=== PATIENT | female | born 1960 | race African-American/Black ===

== ENCOUNTER 2016-05-17 19:48 | Inpatient (IN) | payer OTHER ==
[2016-05-17 20:44] VITALS: BMI 28.3
--- NOTE | 2016-05-17 21:27 | HP ---
CIWA Score - CIWA Score Nausea/Vomitin-No Nausea/No Vomiting Muscle Tremors: 2 Anxiety: 3 Agitation: 3 Paroxysmal Sweats: 1-Minimal Palms Moist Orientation: 0-Oriented Tacttile Disturbances: 2-Mild Itch/Numbness/Burn (RIGHT HAND) Auditory Disturbances: 1-Very Mild Visual Disturbances: 1-Very Mild Sensitivity Headache: 2-Mild CIWA-Ar Total Score: 15 Admission ROS S - HPI Chief Complaint: WITHDRAWAL SYMPTOMS Allergies/Adverse Reactions: Allergies Allergy/AdvReac Type Severity Reaction Status Date / Time haloperidol [From Haldol] Allergy Severe Swelling Verified 05/17/16 20:49 haloperidol lactate Allergy Severe Swelling Verified 05/17/16 20:49 [From Haldol] brown sugar Allergy Severe Nausea Uncoded 05/17/16 20:49 History of Present Illness: 55 Y.O. WOMAN WITH AN EXTENSIVE HISTORY OF DRUG DEPENDENCE IS SEEKING DETOX. SHE COMPLETED DETOX AND REHAB IN THE PAST AND REPORTS HAVING A PERIOD OF 5 YEARS OF SOBRIETY. Exam Limitations: No Limitations - Ebola screening Have you traveled outside of the country in the last 21 days: No Have you had contact with anyone from an Ebola affected area: No Have you been sick,other than usual withdrawal symptoms: No Do you have a fever: No - Review of Systems Constitutional: Chills, Malaise, Changes in sleep EENT: reports: Blurred Vision, Tearing Respiratory: reports: Shortness of Breath Cardiac: reports: No Symptoms Reported GI: reports: Diarrhea : reports: No Symptoms Reported Musculoskeletal: reports: Back Pain, Joint Pain, Neck Pain Integumentary: reports: No Symptoms Reported Neuro: reports: Headache, Numbness (RIGHT HAND) Endocrine: reports: No Symptoms Reported Hematology: reports: No Symptoms Reported Psychiatric: reports: Mood/Affect Appropiate, Orientated x3, Depressed Other Systems: Reviewed and Negative Patient History - Patient Medical History Hx Anemia: No Hx Asthma: Yes Hx Chronic Obstructive Pulmonary Disease (COPD): No Hx Cancer: No Hx Cardiac Disorders: No Hx Congestive Heart Failure: No Hx Hypertension: No Hx Hypercholesterolemia: Yes Hx Pacemaker: No HX Cerebrovascular Accident: No Hx Seizures: No Hx Dementia: No Hx Diabetes: Yes (TYPE II ) Hx Gastrointestinal Disorders: No Hx Liver Disease: No Hx Genitourinary Disorders: No Hx Sexually Transmitted Disorders: No Hx Renal Disease (ESRD): No Hx Thyroid Disease: No Hx Human Immunodeficiency Virus (HIV): No Hx Hepatitis C: No Hx Depression: Yes Hx Suicide Attempt: Yes (ATTEMPTED OVERDOSE AT 18 Y.O. ) Hx Bipolar Disorder: No Hx Schizophrenia: No - Patient Surgical History Past Surgical History: Yes Hx Neurologic Surgery: No Hx Cataract Extraction: No Hx Cardiac Surgery: No Hx Lung Surgery: No Hx Breast Surgery: No Hx Breast Biopsy: No Hx Abdominal Surgery: No Hx Appendectomy: No Hx Cholecystectomy: No Hx Genitourinary Surgery: No Hx Section: Yes (1977) Hx Orthopedic Surgery: Yes (L KNEE REPLACEMENT; FX REPAIR ) Anesthesia Reaction: No - PPD History Previous Implant?: Yes Documented Results: Negative w/o proof PPD to be Administered?: Yes - Reproductive History Patient is a Female of Child Bearing Age (11 -55 yrs old): Yes Last Menstrual Period: 05/17/13 Patient : No - Smoking Cessation Smoking history: Current every day smoker Have you smoked in the past 12 months: Yes Aproximately how many cigarettes per day: 5 Hx Chewing Tobacco Use: No Initiated information on smoking cessation: Yes 'Breaking Loose' booklet given: 05/17/16 - Substance & Tx. History Hx Alcohol Use: Yes Hx Substance Use: Yes Substance Use Type: Alcohol, Cocaine, Heroin Hx Substance Use Treatment: Yes (DETOX AND REHAB ) - Substances Abused Alcohol Route: Oral Frequency: Daily Amount used: liquor- 4 pints, beer- 5 (40oz) Age of first use: 15 Date of Last Use: 05/17/16 Cocaine Route: Inhalation Frequency: Daily Amount used: 10 bags Age of first use: 32 Date of Last Use: 05/13/16 Family Disease History - Family Disease History Family Disease History: Diabetes: Mother, CA: Sister (CERVICAL CA ), Other: Brother (ALCOHOL AND DRUG DEPENDENCE ) Admission Physical Exam BHS - Vital Signs Vital Signs: Vital Signs - 24 hr 05/17/16 20:42 Temperature 98.2 F Pulse Rate 86 Respiratory 18 Rate Blood Pressure 151/95 - Physical General Appearance: Yes: No Apparent Distress HEENTM: Yes: Hearing grossly Normal, Normocephalic, Normal Voice Respiratory: Yes: Lungs Clear, Normal Breath Sounds, No Respiratory Distress, No Accessory Muscle Use Neck: Yes: No masses,lesions,Nodules, Trachea in good position Breast: Yes: Breast Exam Deferred Cardiology: Yes: Regular Rhythm, Regular Rate Abdominal: Yes: Normal Bowel Sounds, Non Tender, Flat, Soft Genitourinary: Yes: Within Normal Limits Back: Yes: Normal Inspection Musculoskeletal: Yes: full range of Motion, Gait Steady Extremities: Yes: Normal Inspection, Normal Range of Motion, Non-Tender Neurological: Yes: Fully Oriented, Normal Mood/Affect, Normal Response Integumentary: Yes: Normal Color, Dry, Warm Lymphatic: Yes: Within Normal Limits - Diagnostic (1) Alcohol dependence with uncomplicated withdrawal Current Visit: Yes Status: Chronic (2) Asthma Current Visit: Yes Status: Chronic (3) Diabetes mellitus, type II Current Visit: Yes Status: Chronic (4) Nicotine dependence Current Visit: Yes Status: Chronic (5) Cocaine dependence Current Visit: Yes Status: Chronic (6) Hyperlipidemia Current Visit: Yes Status: Chronic Cleared for Admission [facility] - Detox or Rehab [facility] Level of Care: Medically Managed Detox Regimen/Protocol: Librium [facility] Breath Alcohol Content Breath Alcohol Content: 0 Urine Pregancy Test - Result Urine Test Results: Negative- NO Line Present Urine Drug Screen - Results Drug Screen Negative: No Urine Drug Screen Results: KELLEY-Cocaine
[2016-05-17] MEDS ORDERED: chlordiazePOXIDE HCL 25 MG CAPSULE PO ONE (21:38)
[2016-05-17] MEDS ORDERED: diphenhydrAMINE HCL 50 MG CAPSULE PO PRN (21:38)
[2016-05-17] MEDS ORDERED: MAGNESIUM HYDROX 2400MG/30ML ORAL SUSPENSION 30 ML CUP PO PRN (21:38)
[2016-05-17] MEDS ORDERED: MAGNESIUM CITRATE 300 ML BOTTLE PO PRN (21:38)
[2016-05-17] MEDS ORDERED: LOPERAMIDE HCL 2 MG CAPSULE PO PRN (21:38)
[2016-05-17] MEDS ORDERED: MENTHOL/PHENOL 1 EACH UD MM PRN (21:38)
[2016-05-17] MEDS ORDERED: hydrOXYzine PAMOATE 50 MG CAPSULE (FP) PO PRN (21:38)
[2016-05-17] MEDS ORDERED: IBUPROFEN 400 MG TABLET (FP) PO PRN (21:38)
[2016-05-17] MEDS ORDERED: MAG HYDROX/AL HYDROX/SIMETH 30 ML UNIT-DOSE CUP PO PRN (21:38)
[2016-05-17] MEDS ORDERED: chlordiazePOXIDE HCL 25 MG CAPSULE PO PRN (21:38)
[2016-05-17] MEDS ORDERED: guaiFENesin/D-METHORPHAN HB 10 ML UNIT-DOSE CUPS PO PRN (21:38)
[2016-05-17] MEDS ORDERED: ACETAMINOPHEN 325 MG TABLET (FP) PO PRN (21:38)
[2016-05-17] MEDS ORDERED: P-EPHED 60MG/TRIPROLIDI 2.5MG TABLET PO PRN (21:38)
[2016-05-17] MEDS ORDERED: ALBUTEROL SO4 6.7 GM HFA INHALER IH PRN (21:46)
[2016-05-17 22:31] LABS: URINE APPEARANCE CLOUDY; URINE BILIRUBIN NEGATIVE (NEGATIVE); URINE BLOOD NEGATIVE (NEGATIVE); URINE COLOR YELLOW; URINE GLUCOSE (UA) NEGATIVE (NEGATIVE); URINE KETONE NEGATIVE (NEGATIVE); URINE LEUK ESTERASE NEGATIVE (NEGATIVE); URINE NITRITE NEGATIVE (NEGATIVE); URINE PROTEIN NEGATIVE (NEGATIVE); URINE UROBILINOGEN NEGATIVE E.U./dl (0.2-1.0)
[2016-05-17] MEDS ORDERED: ATORVASTATIN CA 40 MG TABLET (FP) ONE (22:51)
[2016-05-17] MEDS: ATORVASTATIN CA 80 MG TABLET (FP) PO SCH (22:54)
[2016-05-17] MEDS: THIAMINE HCL 100 MG TABLET (FP) PO SCH (22:54)
[2016-05-17] MEDS: chlordiazePOXIDE HCL 25 MG CAPSULE PO SCH (22:54)
[2016-05-18] MEDS: chlordiazePOXIDE HCL 25 MG CAPSULE PO SCH ×4 (05:34→22:35)
[2016-05-18] MEDS: metFORMIN HCL 500 MG TABLET (FP) PO SCH ×2 (08:39→17:25)
--- NOTE | 2016-05-18 10:37 | PN ---
S CIWA - CIWA Score Nausea/Vomitin Muscle Tremors: 3 Anxiety: 3 Agitation: 2 Paroxysmal Sweats: 1-Minimal Palms Moist Orientation: 0-Oriented Tacttile Disturbances: 1-Very Mild Itch/Numbness Auditory Disturbances: 1-Very Mild Visual Disturbances: 1-Very Mild Sensitivity Headache: 2-Mild CIWA-Ar Total Score: 17 BHS Progress Note (SOAP) Subjective: ALERT,IRRITABLE,ANXIOUS,INTERRUPTED SLEEP,TREMOR,PAIN IN THE BODY AND BACK Objective: 05/18/16 10:35 Vital Signs Temperature 97.7 F 05/18/16 10:31 Pulse Rate 84 05/18/16 10:31 Respiratory Rate 18 05/18/16 10:31 Blood Pressure 128/69 05/18/16 10:31 O2 Sat by Pulse Oximetry (%) EKG NSR Laboratory Last Values POC Glucometer 99 UNITS (()) 05/18/16 05:34 Urine Color Yellow 05/17/16 21:44 Urine Appearance Cloudy 05/17/16 21:44 Urine pH 5.0 (5.0-8.0) 05/17/16 21:44 Ur Specific [place] 1.017 (1.001-1.035) 05/17/16 21:44 Urine Protein Negative (NEGATIVE) 05/17/16 21:44 Urine Glucose (UA) Negative (NEGATIVE) 05/17/16 21:44 Urine Ketones Negative (NEGATIVE) 05/17/16 21:44 Urine Blood Negative (NEGATIVE) 05/17/16 21:44 Urine Nitrite Negative (NEGATIVE) 05/17/16 21:44 Urine Bilirubin Negative (NEGATIVE) 05/17/16 21:44 Urine Urobilinogen Negative E.U./dl (0.2-1.0) 05/17/16 21:44 Ur Leukocyte Esterase Negative (NEGATIVE) 05/17/16 21:44 LABS PENDING Assessment: 05/18/16 10:36 WITHDRAWAL SYMPTOM Plan: CONTINUE DETOX,BGM MONITORING
[2016-05-18 10:49] LABS: MCH 30.6 pg (25.7-33.7); MCHC 32.5 g/dl (32.0-36.0); MEAN CELL VOLUME 94.1 fl (80-96); MEAN PLT VOLUME 8.2 fl (7.5-11.1); PLATELET COUNT 245 K/MM3 (134-434); RDW 13.8 % (11.6-15.6); WHITE BLOOD COUNT 7.2 K/mm3 (4.0-10.0)
[2016-05-18] MEDS: PRENATAL VITAMINS W/ FOLIC ACID TABLET (FP) PO SCH (10:51)
[2016-05-18] MEDS: NICOTINE 21 MG/24 HOURS TOPICAL PATCH TD SCH (10:52)
[2016-05-18 12:24] LABS: ALBUMIN 3.6 g/dl (3.4-5.0); ANION GAP 9 (8-16); CALCIUM 8.9 mg/dL (8.5-10.1); CO2 29 mmol/L (21-32); GLUCOSE,RANDOM 177 mg/dL (74-106)
[2016-05-18 12:29] LABS: ALK PHOS 64 U/L (45-117); BILIRUBIN,TOTAL 0.7 mg/dL (0.2-1.0); CREATININE 0.9 mg/dL (0.55-1.02); SGOT/AST 9 U/L (15-37); SGPT/ALT 11 U/L (12-78); TOT PROT 6.7 g/dl (6.4-8.2)
--- NOTE | 2016-05-18 18:45 | CONSULT ---
[facility] Psychiatric Consult - Data Date of interview: 05/18/16 Admission source: [facility] Identifying data: Readmission to [facility] for this 55 y/o AA female seeking detox treatment for heroin,cocaine and alcohol dependence.Patient is single,a mother of two,homeless,unemployed and supported on [facility] benefits. Substance Abuse History: - Smoking Cessation. Smoking history: Current every day smoker. Have you smoked in the past 12 months: Yes. Aproximately how many cigarettes per day: 5. Hx Chewing Tobacco Use: No. Initiated information on smoking cessation: Yes. 'Breaking Loose' booklet given: 05/17/16. - Substance & Tx. History. Hx Alcohol Use: Yes. Hx Substance Use: Yes. Substance Use Type : Alcohol, Cocaine, Heroin. Hx Substance Use Treatment: Yes (DETOX AND REHAB ) . - Substances Abused. Alcohol. Route: Oral. Frequency: Daily. Amount used: liquor- 4 pints, beer- 5 (40oz). Age of first use: 15. Date of Last Use : 05/17/16. Cocaine. Route: Inhalation. Frequency: Daily. Amount used: 10 bags. Age of first use: 32. Date of Last Use: 05/13/16. Confirmed by patient. Medical History: Diabetes mellitus,rheumatoid arthritis,hypercholesterolemia and history of left knee replacement. Psychiatric History: History of 4-5 psychiatric hospitalizations limited to two institutions ([facility] and [facility]).Diagnosed with MDD.Patient reports trials with various drugs (paxil,duloxetine,gabapentin, zoloft,wellbutrin and others).Off psychotropic medications for about a year,as per own choice.No OPD care (used to be followed up at [facility]).Ms Beasley declines to consider a re-introduction to psychiatric care.Not interested in medications.Patient admits to a remote history of one suicide attempt (age 18) via overdose " with pills." Physical/Sexual Abuse/Trauma History: Patient denies. Additional Comment: Urine Drug Screen Results: KELLEY-Cocaine.Noted. Mental Status Exam - Mental Status Exam Alert and Oriented to: Time, Place, Person Cognitive Function: Good Patient Appearance: Well Groomed Mood: Withdrawn, Hopeful Affect: Normal Range Patient Behavior: Fatigued, Appropriate, Cooperative Speech Pattern: Clear Voice Loudness: Normal Thought Process: Goal Oriented Thought Disorder: Not Present Hallucinations: Denies Suicidal Ideation: Denies Homicidal Ideation: Denies Insight/Judgement: Poor Sleep: Well Appetite: Good Muscle strength/Tone: Normal Gait/Station: Normal Psychiatric Findings - Problem List ([place] 1, 2,3) (1) Alcohol dependence with uncomplicated withdrawal Current Visit: Yes Status: Acute (2) Cocaine dependence Current Visit: Yes Status: Acute (3) Nicotine dependence Current Visit: Yes Status: Acute (4) Substance induced mood disorder Current Visit: Yes Status: Acute (5) Asthma Current Visit: Yes Status: Chronic (6) Diabetes mellitus, type II Current Visit: Yes Status: Chronic (7) Hyperlipidemia Current Visit: Yes Status: Chronic - Initial Treatment Plan Initial Treatment Plan: Psychoeducation.Detoxification.Observation.
[2016-05-18] MEDS ORDERED: ATORVASTATIN CA 20 MG TABLET (FP) ONE (22:12)
[2016-05-18] MEDS: THIAMINE HCL 100 MG TABLET (FP) PO SCH (22:35)
[2016-05-18] MEDS: ATORVASTATIN CA 80 MG TABLET (FP) PO SCH (22:37)
[2016-05-19] MEDS: chlordiazePOXIDE HCL 25 MG CAPSULE PO SCH ×3 (05:33→17:55)
[2016-05-19] MEDS: metFORMIN HCL 500 MG TABLET (FP) PO SCH ×2 (07:55→17:25)
[2016-05-19] MEDS: PRENATAL VITAMINS W/ FOLIC ACID TABLET (FP) PO SCH (10:22)
[2016-05-19] MEDS: NICOTINE 21 MG/24 HOURS TOPICAL PATCH TD SCH (10:22)
--- NOTE | 2016-05-19 11:11 | PN ---
S CIWA - CIWA Score Nausea/Vomitin Muscle Tremors: 3 Anxiety: 3 Agitation: 2 Paroxysmal Sweats: 1-Minimal Palms Moist Orientation: 0-Oriented Tacttile Disturbances: 1-Very Mild Itch/Numbness Auditory Disturbances: 1-Very Mild Visual Disturbances: 1-Very Mild Sensitivity Headache: 2-Mild CIWA-Ar Total Score: 17 BHS Progress Note (SOAP) Subjective: ALERT,IRRITABLE,ANXIOUS,INTERRUPTED SLEEP,TREMOR Objective: 05/19/16 11:10 Vital Signs Temperature 97.5 F L 05/19/16 09:53 Pulse Rate 82 05/19/16 09:53 Respiratory Rate 16 05/19/16 09:53 Blood Pressure 144/79 05/19/16 09:53 O2 Sat by Pulse Oximetry (%) Laboratory Last Values WBC 7.2 K/mm3 (4.0-10.0) 05/18/16 08:13 RBC 4.38 M/mm3 (3.60-5.2) 05/18/16 08:13 Hgb 13.4 GM/dL (10.7-15.3) 05/18/16 08:13 Hct 41.2 % (32.4-45.2) 05/18/16 08:13 MCV 94.1 fl (80-96) 05/18/16 08:13 MCHC 32.5 g/dl (32.0-36.0) 05/18/16 08:13 RDW 13.8 % (11.6-15.6) 05/18/16 08:13 Plt Count 245 K/MM3 (134-434) 05/18/16 08:13 MPV 8.2 fl (7.5-11.1) 05/18/16 08:13 Sodium 141 mmol/L (136-145) 05/18/16 08:13 Potassium 4.1 mmol/L (3.5-5.1) 05/18/16 08:13 Chloride 103 mmol/L (98-107) 05/18/16 08:13 Carbon Dioxide 29 mmol/L (21-32) 05/18/16 08:13 Anion Gap 9 (8-16) 05/18/16 08:13 BUN 20 mg/dL (7-18) H 05/18/16 08:13 Creatinine 0.9 mg/dL (0.55-1.02) 05/18/16 08:13 Creat Clearance w eGFR > 60 (>60) 05/18/16 08:13 POC Glucometer 181 UNITS (()) 05/18/16 16:25 Random Glucose 177 mg/dL (74-106) H 05/18/16 08:13 Calcium 8.9 mg/dL (8.5-10.1) 05/18/16 08:13 Total Bilirubin 0.7 mg/dL (0.2-1.0) 05/18/16 08:13 AST 9 U/L (15-37) L 05/18/16 08:13 ALT 11 U/L (12-78) L 05/18/16 08:13 Alkaline Phosphatase 64 U/L (45-117) 05/18/16 08:13 Total Protein 6.7 g/dl (6.4-8.2) 05/18/16 08:13 Albumin 3.6 g/dl (3.4-5.0) 05/18/16 08:13 Urine Color Yellow 05/17/16 21:44 Urine Appearance Cloudy 05/17/16 21:44 Urine pH 5.0 (5.0-8.0) 05/17/16 21:44 Ur Specific [place] 1.017 (1.001-1.035) 05/17/16 21:44 Urine Protein Negative (NEGATIVE) 05/17/16 21:44 Urine Glucose (UA) Negative (NEGATIVE) 05/17/16 21:44 Urine Ketones Negative (NEGATIVE) 05/17/16 21:44 Urine Blood Negative (NEGATIVE) 05/17/16 21:44 Urine Nitrite Negative (NEGATIVE) 05/17/16 21:44 Urine Bilirubin Negative (NEGATIVE) 05/17/16 21:44 Urine Urobilinogen Negative E.U./dl (0.2-1.0) 05/17/16 21:44 Ur Leukocyte Esterase Negative (NEGATIVE) 05/17/16 21:44 RPR Titer Nonreactive (NONREACTIVE) 05/18/16 08:13 Assessment: 05/19/16 11:10 WITHDRAWAL SYMPTOM Plan: CONTINUE DETOX,BGM 181,BGM MONITORING
--- NOTE | 2016-05-19 11:38 | EKG ---
Test Reason : Blood Pressure : / mmHG Vent. Rate : 076 BPM Atrial Rate : 076 BPM P-R Int : 144 ms QRS Dur : 078 ms QT Int : 406 ms P-R-T Axes : 047 -04 046 degrees QTc Int : 456 ms NORMAL SINUS RHYTHM MINIMAL VOLTAGE CRITERIA FOR LVH, MAY BE NORMAL VARIANT BORDERLINE ECG NO PREVIOUS ECGS AVAILABLE Confirmed by ASAD FLAHERTY MD ([id number]) on 05/19/2016 11:38:18 AM Referred By: Confirmed By:ASAD FLAHERTY MD
--- NOTE | 2016-05-19 11:51 | PN ---
BHS Progress Note Note: ADDENDUM DEPRESS WILL GET PSYCHIATRIST FOR RE EVALUATION
[2016-05-19] MEDS ORDERED: ATORVASTATIN CA 20 MG TABLET (FP) ONE (21:44)
[2016-05-19] MEDS: chlordiazePOXIDE 5 MG CAPSULE PO SCH (22:14)
[2016-05-19] MEDS: THIAMINE HCL 100 MG TABLET (FP) PO SCH (22:14)
[2016-05-19] MEDS: ATORVASTATIN CA 80 MG TABLET (FP) PO SCH (22:14)
[2016-05-20] MEDS: chlordiazePOXIDE 5 MG CAPSULE PO SCH ×3 (06:11→17:41)
[2016-05-20] MEDS: metFORMIN HCL 500 MG TABLET (FP) PO SCH ×2 (06:14→16:59)
--- NOTE | 2016-05-20 10:07 | PN ---
BHS Progress Note (SOAP) Subjective: sweats, nausea, dm Objective: 05/20/16 10:06 Vital Signs Temperature 97.5 F L 05/20/16 06:00 Pulse Rate 81 05/20/16 06:00 Respiratory Rate 18 05/20/16 06:00 Blood Pressure 124/66 05/20/16 06:00 O2 Sat by Pulse Oximetry (%) Laboratory Tests 05/17/16 05/18/16 05/18/16 21:44 05:34 08:13 WBC 7.2 RBC 4.38 Hgb 13.4 Hct 41.2 MCV 94.1 MCHC 32.5 RDW 13.8 Plt Count 245 MPV 8.2 Sodium Potassium Chloride Carbon Dioxide Anion Gap BUN Creatinine Creat Clearance w eGFR POC Glucometer 99 Random Glucose Calcium Total Bilirubin AST ALT Alkaline Phosphatase Total Protein Albumin Urine Color Yellow Urine Appearance Cloudy Urine pH 5.0 Ur Specific [place] 1.017 Urine Protein Negative Urine Glucose (UA) Negative Urine Ketones Negative Urine Blood Negative Urine Nitrite Negative Urine Bilirubin Negative Urine Urobilinogen Negative Ur Leukocyte Esterase Negative RPR Titer 05/18/16 05/18/16 05/18/16 08:13 08:13 16:25 WBC RBC Hgb Hct MCV MCHC RDW Plt Count MPV Sodium 141 Potassium 4.1 Chloride 103 Carbon Dioxide 29 Anion Gap 9 BUN 20 H Creatinine 0.9 Creat Clearance w eGFR > 60 POC Glucometer 181 Random Glucose 177 H Calcium 8.9 Total Bilirubin 0.7 AST 9 L ALT 11 L Alkaline Phosphatase 64 Total Protein 6.7 Albumin 3.6 Urine Color Urine Appearance Urine pH Ur Specific [place] Urine Protein Urine Glucose (UA) Urine Ketones Urine Blood Urine Nitrite Urine Bilirubin Urine Urobilinogen Ur Leukocyte Esterase RPR Titer Nonreactive 05/19/16 05/19/16 05/20/16 05:32 16:27 06:14 WBC RBC Hgb Hct MCV MCHC RDW Plt Count MPV Sodium Potassium Chloride Carbon Dioxide Anion Gap BUN Creatinine Creat Clearance w eGFR POC Glucometer 224 212 229 Random Glucose Calcium Total Bilirubin AST ALT Alkaline Phosphatase Total Protein Albumin Urine Color Urine Appearance Urine pH Ur Specific [place] Urine Protein Urine Glucose (UA) Urine Ketones Urine Blood Urine Nitrite Urine Bilirubin Urine Urobilinogen Ur Leukocyte Esterase RPR Titer pt aox3 in nad ambulating Assessment: 05/20/16 10:06 withdrawal sx;s ' dm Plan: cont. detox increase fluids analgesic balm d/c in am
[2016-05-20] MEDS: PRENATAL VITAMINS W/ FOLIC ACID TABLET (FP) PO SCH (10:27)
[2016-05-20] MEDS: NICOTINE 21 MG/24 HOURS TOPICAL PATCH TD SCH (10:30)
[2016-05-20] MEDS ORDERED: ATORVASTATIN CA 40 MG TABLET (FP) PO SCH (10:39)
[2016-05-20] MEDS ORDERED: chlordiazePOXIDE 5 MG CAPSULE ONE (21:32)
[2016-05-20] MEDS: METHYL SALICYLATE/MENTHOL OINT 30 GM TUBE TP SCH (22:23)
[2016-05-20] MEDS: THIAMINE HCL 100 MG TABLET (FP) PO SCH (22:24)
[2016-05-20] MEDS: chlordiazePOXIDE HCL 10 MG CAPSULE PO SCH (22:25)
[2016-05-21] MEDS ORDERED: chlordiazePOXIDE 5 MG CAPSULE ONE (02:38)
[2016-05-21] MEDS: chlordiazePOXIDE HCL 10 MG CAPSULE PO SCH ×2 (06:21→10:26)
[2016-05-21] MEDS: metFORMIN HCL 500 MG TABLET (FP) PO SCH (07:18)
--- NOTE | 2016-05-21 09:07 | DS ---
[facility] Detox Discharge Summary Admission Date: 05/17/16 Discharge Date: 05/21/16 - History Present History: Alcohol Dependence - Physical Exam Results Vital Signs: Vital Signs Temperature 97.5 F L 05/21/16 06:30 Pulse Rate 79 05/21/16 06:30 Respiratory Rate 18 05/21/16 06:30 Blood Pressure 138/97 05/21/16 06:30 O2 Sat by Pulse Oximetry (%) - Treatment Hospital Course: Detox Protocol Followed, Detoxed Safely, Responded well, Discharged Condition Good, Rehab Referral Accepted - Medication Discharge Medications: Ambulatory Orders Atorvastatin Ca [Lipitor] 05/17/16 Glipizide [Glipizide] 05/17/16 Metformin HCl [Glucophage] 05/17/16 - Diagnosis (1) Alcohol dependence with uncomplicated withdrawal Current Visit: Yes Status: Chronic (2) Cocaine dependence Current Visit: Yes Status: Chronic Qualifiers: Substance use status: uncomplicated Qualified Code(s): F14.20 - Cocaine dependence, uncomplicated (3) Nicotine dependence Current Visit: Yes Status: Chronic Qualifiers: Nicotine product type: cigarettes Substance use status: uncomplicated Qualified Code(s): F17.210 - Nicotine dependence, cigarettes, uncomplicated (4) Substance induced mood disorder Current Visit: Yes Status: Acute (5) Asthma Current Visit: Yes Status: Chronic Qualifiers: Asthma severity: mild intermittent (6) Diabetes mellitus, type II Current Visit: Yes Status: Chronic Qualifiers: Diabetes mellitus complication status: without complication (7) Hyperlipidemia Current Visit: Yes Status: Chronic Qualifiers: Hyperlipidemia type: pure hypercholesterolemia Qualified Code(s): E78.00 - Pure hypercholesterolemia, unspecified; E78.0 - Pure hypercholesterolemia - AMA Did Patient Leave Against Medical Advice: No
[2016-05-21 09:47] VITALS: BP 135/69; PULSE 90; TEMP 98
[2016-05-21] MEDS ORDERED: METHYL SALICYLATE/MENTHOL OINT 30 GM TUBE TP ONE (10:08)
[2016-05-21] MEDS: NICOTINE 21 MG/24 HOURS TOPICAL PATCH TD SCH (10:26)
[2016-05-21] MEDS: METHYL SALICYLATE/MENTHOL OINT 30 GM TUBE TP SCH (10:26)
[2016-05-21] MEDS: PRENATAL VITAMINS W/ FOLIC ACID TABLET (FP) PO SCH (10:26)
--- NOTE | 2016-05-21 12:11 | PN ---
[facility] Progress Note Note: pt became irrate and began to insult stating i am going to "fuck your "! pt was told to step away pt began to insult singer songwriter. pt was then escorted off the unit.
== END 2016-05-21 11:55 | disposition home or self-care (01) | DRG 774 ==
LOC: YASAS 19:48 → Y6N 20:53
PROVIDERS: ADMIT Internal Medicine Addiction Medicine; ATTEND Internal Medicine Addiction Medicine
PROC: HZ2ZZZZ Detoxification Services for Substance Abuse Treatment (ICD-10-PCS; principal; 2016-05-21)
DX: F10.230 Alcohol dependence with withdrawal, uncomplicated (principal); F14.20 Cocaine dependence, uncomplicated; F17.210 Nicotine dependence, cigarettes, uncomplicated; F19.24 Other psychoactive substance dependence with psychoactive substance-induced mood disorder; J45.20 Mild intermittent asthma, uncomplicated; E11.9 Type 2 diabetes mellitus without complications; Z79.84 Long term (current) use of oral hypoglycemic drugs; E78.00 Pure hypercholesterolemia, unspecified
CPT/HCPCS: 36415; 80053; 81003; 85027; 86593; 93005; 93010